=== PATIENT | female | born 1985 | race Caucasian/White ===

== ENCOUNTER → 2017-03-28 | Outpatient (CLI) | payer BC ==
[~2017-03-28] MED LIST: BENADRYL25 MG PO; CLARITIN10 MG PO; COMBIVENT1 ARO IH; DURICEF500 MG PO; Fioricet 325 MG1 TAB PO; HYDROCODONE BIT1 T11 PO; KENALOG0.1% TP; MEDROL DOSEPAK4 MG PO; MOTRIN800 MG PO; NKHM; PREDNICOT20 MG PO; VISTARIL25 M1 PO; ZITHROMAX Z PA250 MG PO; ZOFRAN ODT4 MG SL
== END | disposition home or self-care (01) ==
LOC: US 03-23 11:00 → MAMMO 03-23 12:00 → US 03-23 12:30 → MAMMO 10:28
DX: N63 Unspecified lump in breast (principal); R92.8 Other abnormal and inconclusive findings on diagnostic imaging of breast; R09.89 Other specified symptoms and signs involving the circulatory and respiratory systems

== ENCOUNTER → 2017-08-08 | Outpatient (CLI) | payer BC | END | disposition home or self-care (01) | LOC: RAD 08:28 | DX: M25.562 Pain in left knee (principal) ==

== ENCOUNTER 2017-10-25 18:54 | Emergency (ER) | payer BC ==
[~2017-10-25] VITALS: Ht 170.1 cm; Wt 97.5 kg
[2017-10-25] MEDS ORDERED: NEURONTIN300 MG PO (19:05)
[2017-10-25] MEDS ORDERED: TROKENDI XR50 M1 PO (19:06)
[2017-10-25] MEDS ORDERED: IBU800 M1 PO (19:06)
[2017-10-25] MEDS ORDERED: TYLENOL EXTRA500 M2 PO (19:07)
[2017-10-25 19:12] VITALS: BP 160/87
[2017-10-25 19:52] LABS: BASO % 0.3 % (0.0-1.0); EOS # 0.1 10*3/uL (0.0-0.4); HEMATOCRIT 37.5 % (37.0-47.0); LYMPH # 1.8 10*3/uL (1.3-4.4); LYMPH % 26.8 % (27.0-41.0); MEAN CELL VOLUME 84.3 fl (81.0-99.0); MEAN PLATELET VOLUME 11.5 fl (9.6-12.3); MONO # 0.2 10*3/uL (0.1-1.0); MONO % 3.2 % (3.0-9.0); NEUT # 4.5 10*3/uL (2.3-7.9); NEUT % 67.5 % (47.0-73.0); PLATELET COUNT AUTOMATED 186 10*3/uL (130-400); RED BLOOD COUNT 4.45 10*6/uL (4.10-5.10); RED CELL DISTRI WIDTH 13.9 % (0-14.5); WHITE BLOOD COUNT 6.6 10*3/uL (4.8-10.8)
[2017-10-25 20:04] LABS: BILIRUBIN NEGATIVE (NEGATIVE); BLOOD 1+ (NEGATIVE); CLARITY SL CLOUDY (CLEAR); COLOR YELLOW (YELLOW); GLUCOSE NEGATIVE (NEGATIVE); KETONE TRACE (NEGATIVE); LEUKO ESTERASE NEGATIVE (NEGATIVE); NITRITE NEGATIVE (NEGATIVE); SPECIFIC GRAVITY 1.025 (1.005-1.030); UROBILINOGEN 0.2 E.U./dl (0.2-1.0)
[2017-10-25 20:07] LABS: ALBUMIN 3.8 gm/dl (3.1-4.5); ALKALINE PHOSPHATASE 74 U/L (45-117); BUN 19 mg/dl (7-24); CHLORIDE 109 mmol/L (98-107); CREATININE 0.72 mg/dL (0.55-1.02); LIPASE 148 U/L (73-393); POTASSIUM 3.6 mmol/L (3.5-5.1); SGOT/AST 9 IU/L (3-35); SGPT/ALT 23 U/L (12-78); SODIUM 143 mmol/L (136-145); TOTAL PROTEIN 7.8 gm/dL (6.4-8.2)
[2017-10-25 20:14] LABS: BACTERIA TRACE
== END 2017-10-25 21:27 | disposition home or self-care (01) ==
LOC: ED 18:54
PROVIDERS: Physician Assistant
DX: R10.12 Left upper quadrant pain (principal); G89.29 Other chronic pain; Z98.890 Other specified postprocedural states; Z79.899 Other long term (current) drug therapy

== ENCOUNTER → 2018-09-25 | Outpatient (CLI) | payer BC ==
[~2018-09-25] MED LIST changes: +IBU800 M1 PO; +NEURONTIN300 MG PO; +TROKENDI XR50 M1 PO; +TYLENOL EXTRA500 M2 PO
[2018-09-25 10:57] LABS: HEMATOCRIT 38.6 % (37.0-47.0); HEMOGLOBIN 12.5 g/dl (12.0-16.0); MEAN CELL VOLUME 84.3 fl (81.0-99.0); MEAN CORPUSCULAR HGB 27.3 pg (27.0-31.0); MEAN CORPUSCULAR HGB CONC 32.4 g/dl (33.0-37.0); MEAN PLATELET VOLUME 11.4 fl (9.6-12.3); RED BLOOD COUNT 4.58 10*6/uL (4.10-5.10); RED CELL DISTRI WIDTH 13.3 % (0-14.5); WHITE BLOOD COUNT 7.5 10*3/uL (4.8-10.8)
[2018-09-25 11:31] LABS: ALKALINE PHOSPHATASE 70 U/L (45-117); BUN 12 mg/dl (7-24); CHLORIDE 104 mmol/L (98-107); CPK 54 U/L (26-192); CREATININE 0.73 mg/dL (0.55-1.02); FREE T4 0.98 ng/dl (0.76-1.46); POTASSIUM 3.7 mmol/L (3.5-5.1); SGOT/AST 13 IU/L (3-35); SGPT/ALT 24 U/L (12-78); SODIUM 137 mmol/L (136-145); TOTAL PROTEIN 7.8 gm/dL (6.4-8.2)
[2018-09-26 08:09] LABS: RHEUMATOID ARTHRITIS FACTOR 11.3 IU/mL (0.0-13.9)
[2018-09-26 15:08] LABS: EPSTEIN-BARR VCA IGG AB 56.6 U/mL (0.0-17.9); EPSTEIN-BARR VCA IGM AB <36.0 U/mL (0.0-35.9)
== END | disposition home or self-care (01) ==
LOC: LAB 10:28
PROVIDERS: Family Medicine
DX: K21.9 Gastro-esophageal reflux disease without esophagitis (principal); E55.9 Vitamin D deficiency, unspecified; F41.1 Generalized anxiety disorder; M25.50 Pain in unspecified joint; M79.10 Myalgia, unspecified site; E74.00 Glycogen storage disease, unspecified

== ENCOUNTER → 2020-07-13 | Outpatient (CLI) | payer BC ==
[2020-07-13 10:09] LABS: HEMATOCRIT 38.8 % (37.0-47.0); MEAN CELL VOLUME 84.3 fl (81.0-99.0); MEAN PLATELET VOLUME 11.6 fl (9.6-12.3); RED BLOOD COUNT 4.6 10*6/uL (4.10-5.10); RED CELL DISTRI WIDTH 13.8 % (0-14.5); WHITE BLOOD COUNT 6.9 10*3/uL (4.8-10.8)
[2020-07-13 10:33] LABS: ALBUMIN 3.8 gm/dl (3.1-4.5); BUN 11 mg/dl (7-24); CHLORIDE 108 mmol/L (98-107); POTASSIUM 3.6 mmol/L (3.5-5.1); SODIUM 139 mmol/L (136-145)
[2020-07-13 10:40] LABS: ALKALINE PHOSPHATASE 81 U/L (45-117); CHOLESTEROL 181 mg/dL (<200); CREATININE 0.66 mg/dL (0.55-1.02); FREE T4 1.09 ng/dl (0.76-1.46); HDL CHOLESTEROL 51 mg/dl (40-60); LDL CHOLESTEROL 105 mg/dL (9-159); SGOT/AST 10 IU/L (3-35); SGPT/ALT 23 U/L (12-78); THYROID STIM HORMONE (HS) 0.915 uIU/ml (0.358-4.75); TOTAL PROTEIN 7.6 gm/dL (6.4-8.2); TRIGLYCERIDES 124 mg/dl (<150); VLDL CHOLESTEROL 25 mg/dL (6-40)
[2020-07-13 11:26] LABS: VITAMIN D, 25-HYDROXY 37.7 ng/mL (30-100)
== END | disposition home or self-care (01) ==
LOC: LAB 09:21
PROVIDERS: ATTEND Family Medicine
DX: E55.9 Vitamin D deficiency, unspecified (principal); R53.83 Other fatigue; R63.5 Abnormal weight gain; E74.9 Disorder of carbohydrate metabolism, unspecified; E78.00 Pure hypercholesterolemia, unspecified

== ENCOUNTER 2021-07-14 19:14 | Emergency (ER) | payer BC ==
[~2021-07-14] VITALS: Ht 170.1 cm; Wt 99.8 kg
[2021-07-14 19:27] VITALS: BP 159/89
== END 2021-07-14 22:27 | disposition home or self-care (01) ==
LOC: ED 19:14
DX: S93.402A Sprain of unspecified ligament of left ankle, initial encounter (principal); S90.32XA Contusion of left foot, initial encounter; Z79.899 Other long term (current) drug therapy; W01.0XXA Fall on same level from slipping, tripping and stumbling without subsequent striking against object, initial encounter; Y93.89 Activity, other specified; Y92.89 Other specified places as the place of occurrence of the external cause; Y99.8 Other external cause status

== ENCOUNTER → 2022-02-05 | Outpatient (CLI) | payer BC ==
[2022-02-05 10:57] LABS: HEMATOCRIT 39.6 % (37.0-47.0); MEAN CELL VOLUME 81.1 fl (81.0-99.0); MEAN CORPUSCULAR HGB 25.8 pg (27.0-31.0); MEAN CORPUSCULAR HGB CONC 31.8 g/dl (33.0-37.0); MEAN PLATELET VOLUME 11.3 fl (9.6-12.3); RED BLOOD COUNT 4.88 10*6/uL (4.10-5.10); RED CELL DISTRI WIDTH 14.4 % (0-14.5)
[2022-02-05 11:16] LABS: ALKALINE PHOSPHATASE 78 U/L (45-117); BUN 9 mg/dl (7-24); CHLORIDE 107 mmol/L (98-107); CHOLESTEROL 185 mg/dL (<200); CREATININE 0.62 mg/dL (0.55-1.02); FREE T4 0.98 ng/dl (0.76-1.46); LDL CHOLESTEROL 99 mg/dL (9-159); POTASSIUM 3.4 mmol/L (3.5-5.1); SGOT/AST 16 IU/L (3-35); SGPT/ALT 32 U/L (12-78); SODIUM 141 mmol/L (136-145); TRIGLYCERIDES 121 mg/dl (<150)
[2022-02-05 11:20] LABS: THYROID STIM HORMONE (HS) 0.889 uIU/ml (0.358-4.75)
[2022-02-05 12:26] LABS: VITAMIN D, 25-HYDROXY 13.4 ng/mL (30-100)
== END | disposition home or self-care (01) ==
LOC: LAB 10:26
PROVIDERS: ATTEND Family Medicine
DX: Z00.00 Encounter for general adult medical examination without abnormal findings (principal); E55.9 Vitamin D deficiency, unspecified; R53.83 Other fatigue; F41.1 Generalized anxiety disorder; E74.00 Glycogen storage disease, unspecified

== ENCOUNTER → 2023-02-15 | Outpatient (CLI) | payer BC ==
[2023-02-15 07:59] LABS: HEMATOCRIT 37.4 % (37.0-47.0); MEAN CELL VOLUME 85.6 fl (81.0-99.0); MEAN CORPUSCULAR HGB 27.2 pg (27.0-31.0); MEAN CORPUSCULAR HGB CONC 31.8 g/dl (33.0-37.0); MEAN PLATELET VOLUME 11.1 fl (9.6-12.3); RED BLOOD COUNT 4.37 10*6/uL (4.10-5.10); RED CELL DISTRI WIDTH 14.7 % (0-14.5); WHITE BLOOD COUNT 6.7 10*3/uL (4.8-10.8)
[2023-02-15 08:34] LABS: ALKALINE PHOSPHATASE 75 U/L (46-116); BUN 11 mg/dl (9-23); CHLORIDE 103 mmol/L (98-107); CHOLESTEROL 187 mg/dL (<200); FREE T4 1.06 ng/dl (0.89-1.76); LDL CHOLESTEROL 106 mg/dL (9-159); POTASSIUM 3.4 mmol/L (3.4-5.1); SGPT/ALT 53 U/L (10-49); THYROID STIM HORMONE (HS) 1.054 uIU/ml (0.550-4.780); TOTAL PROTEIN 7.2 gm/dL (6.0-8.0); TRIGLYCERIDES 135 mg/dl (<150)
[2023-02-15 08:52] LABS: VITAMIN D, 25-HYDROXY 32.9 ng/mL (30-100)
[2023-02-17 05:06] LABS: TESTOSTERONE FREE, (DIRECT) 0.8 pg/mL (0.0-4.2)
== END | disposition home or self-care (01) ==
LOC: LAB 07:26
PROVIDERS: ATTEND Family Medicine
DX: Z00.00 Encounter for general adult medical examination without abnormal findings (principal); E74.9 Disorder of carbohydrate metabolism, unspecified; E55.9 Vitamin D deficiency, unspecified; R53.83 Other fatigue; R25.1 Tremor, unspecified; L68.0 Hirsutism; R63.5 Abnormal weight gain

== ENCOUNTER → 2023-08-11 | Outpatient (CLI) | payer BC ==
[2023-08-11 09:31] LABS: HEMATOCRIT 37.3 % (37.0-47.0); MEAN CELL VOLUME 80.9 fl (81.0-99.0); MEAN CORPUSCULAR HGB 26.2 pg (27.0-31.0); MEAN CORPUSCULAR HGB CONC 32.4 g/dl (33.0-37.0); MEAN PLATELET VOLUME 11.1 fl (9.6-12.3); RED BLOOD COUNT 4.61 10*6/uL (4.10-5.10); RED CELL DISTRI WIDTH 14.6 % (0-14.5); WHITE BLOOD COUNT 7.8 10*3/uL (4.8-10.8)
[2023-08-11 10:00] LABS: ALKALINE PHOSPHATASE 67 U/L (46-116); BUN 9 mg/dl (9-23); CHLORIDE 104 mmol/L (98-107); CHOLESTEROL 175 mg/dL (<200); CPK 68 U/L (34-171); FREE T4 1.14 ng/dl (0.89-1.76); LDL CHOLESTEROL 96 mg/dL (9-159); POTASSIUM 3.1 mmol/L (3.4-5.1); SGPT/ALT 56 U/L (10-49); TOTAL PROTEIN 7.4 gm/dL (6.0-8.0); TRIGLYCERIDES 122 mg/dl (<150)
[2023-08-11 11:33] LABS: VITAMIN D, 25-HYDROXY 22.7 ng/mL (30-100)
== END | disposition home or self-care (01) ==
LOC: LAB 09:10
PROVIDERS: ATTEND Family Medicine
DX: E78.00 Pure hypercholesterolemia, unspecified (principal); E55.9 Vitamin D deficiency, unspecified; M79.10 Myalgia, unspecified site; R51.9 Headache, unspecified; R53.83 Other fatigue; I10 Essential (primary) hypertension; M25.50 Pain in unspecified joint

== ENCOUNTER → 2023-08-15 | Outpatient (CLI) | payer BC | END | disposition home or self-care (01) | LOC: LAB 16:15 | PROVIDERS: ATTEND Family Medicine | DX: R76.0 Raised antibody titer (principal) ==

== ENCOUNTER 2024-07-06 13:24 | Emergency (ER) | payer BC ==
[~2024-07-06] VITALS: Ht 170.1 cm; Wt 115.7 kg
[2024-07-06 13:36] VITALS: BP 151/86
[2024-07-06] MEDS ORDERED: Lidocaine Hydrochloride 2 ML AMP SC ONE (13:55)
[2024-07-06] MEDS ORDERED: Lidocaine Hydrochloride 2% 50 ML MDV SC ONE (13:55)
[2024-07-06] MEDS ORDERED: Lidocaine Hydrochloride 5 ML AMP ONE (14:09)
[2024-07-06] MEDS ORDERED: Bacitracin Zinc 14 GM TUBE T ONE (14:20)
[2024-07-06] MEDS ORDERED: Tdap Vaccine 0.5 ML SYR (Adult Vaccine) IM ONE (14:20)
== END 2024-07-06 14:34 | disposition home or self-care (01) ==
LOC: ED 13:24
DX: S61.210A Laceration without foreign body of right index finger without damage to nail, initial encounter (principal); Z98.890 Other specified postprocedural states; W25.XXXA Contact with sharp glass, initial encounter; Y93.89 Activity, other specified; Y92.009 Unspecified place in unspecified non-institutional (private) residence as the place of occurrence of the external cause; Y99.8 Other external cause status

== ENCOUNTER 2024-10-23 20:03 | Emergency (ER) | payer BC ==
[~2024-10-23] VITALS: Wt 99.8 kg
[2024-10-23 20:19] VITALS: BP 144/73
[2024-10-23] MEDS ORDERED: IBUPROFEN 600 MG TAB PO ONE (20:45)
[2024-10-23] MEDS ORDERED: ACETAMINOPHEN 325 MG TAB PO ONE (20:45)
[2024-10-23 20:55] LABS: BASO % 0.2 % (0.0-1.0); EOS % 0.2 % (1.0-4.0); HEMATOCRIT 38.6 % (37.0-47.0); MEAN CELL VOLUME 81.1 fl (81.0-99.0); MEAN CORPUSCULAR HGB 25.2 pg (27.0-31.0); MEAN CORPUSCULAR HGB CONC 31.1 g/dl (33.0-37.0); MEAN PLATELET VOLUME 10.8 fl (9.6-12.3); MONO # 0.3 10*3/uL (0.1-1.0); MONO % 2.9 % (3.0-9.0); NEUT # 8.1 10*3/uL (2.3-7.9); NEUT % 87.8 % (47.0-73.0); PLATELET COUNT AUTOMATED 221 10*3/uL (130-400); RED BLOOD COUNT 4.76 10*6/uL (4.10-5.10); RED CELL DISTRI WIDTH 16.8 % (0-14.5); WHITE BLOOD COUNT 9.3 10*3/uL (4.8-10.8)
[2024-10-23 21:12] LABS: BUN 9 mg/dl (9-23); CHLORIDE 102 mmol/L (98-107); POTASSIUM 3.7 mmol/L (3.4-5.1)
[2024-10-23] MEDS ORDERED: ZITHROMAX250 MG PO (22:08)
[2024-10-23] MEDS ORDERED: PREDNISONE50 MG PO (22:08)
[2024-10-23] MEDS ORDERED: AZITHROMYCIN 250 MG TAB PO ONE (22:10)
[2024-10-23] MEDS ORDERED: predniSONE 20 MG TAB PO ONE (22:10)
== END 2024-10-23 22:30 | disposition home or self-care (01) ==
LOC: ED 20:03
PROVIDERS: Nurse Practitioner Family
DX: J18.9 Pneumonia, unspecified organism (principal); Z20.822 Contact with and (suspected) exposure to COVID-19; J45.909 Unspecified asthma, uncomplicated; I10 Essential (primary) hypertension; Z98.890 Other specified postprocedural states

== ENCOUNTER → 2024-11-11 | Outpatient (CLI) | payer BC ==
[~2024-11-11] MED LIST changes: +BARIUM SULFATE 60% 355 ML BOT PO ONE; +PREDNISONE50 MG PO; +ZITHROMAX250 MG PO
== END | disposition home or self-care (01) ==
LOC: RAD 07:31
PROVIDERS: ATTEND Surgery
DX: Z01.818 Encounter for other preprocedural examination (principal)

== ENCOUNTER → 2025-01-10 | Outpatient (CLI) | payer BC ==
[~2025-01-10] MED LIST changes: -BARIUM SULFATE 60% 355 ML BOT PO ONE
[2025-01-10 10:27] LABS: HEMATOCRIT 38.3 % (37.0-47.0); MEAN CELL VOLUME 84.4 fl (81.0-99.0); MEAN CORPUSCULAR HGB 26.4 pg (27.0-31.0); MEAN CORPUSCULAR HGB CONC 31.3 g/dl (33.0-37.0); MEAN PLATELET VOLUME 11.4 fl (9.6-12.3); RED BLOOD COUNT 4.54 10*6/uL (4.10-5.10); WHITE BLOOD COUNT 6.3 10*3/uL (4.8-10.8)
[2025-01-10 11:05] LABS: ALKALINE PHOSPHATASE 75 U/L (46-116); BUN 13 mg/dl (9-23); CHLORIDE 105 mmol/L (98-107); CHOLESTEROL 197 mg/dL (<200); CPK 68 U/L (34-171); FREE T4 1.22 ng/dl (0.89-1.76); LDL CHOLESTEROL 120 mg/dL (9-159); POTASSIUM 3.8 mmol/L (3.4-5.1); SGPT/ALT 55 U/L (5-49); TOTAL PROTEIN 7.2 gm/dL (6.0-8.0); TRIGLYCERIDES 140 mg/dl (<150)
[2025-01-10 11:15] LABS: VITAMIN D, 25-HYDROXY 36.1 ng/mL (30-100)
== END | disposition home or self-care (01) ==
LOC: LAB 10:09
PROVIDERS: ATTEND Family Medicine
DX: I10 Essential (primary) hypertension (principal); E74.9 Disorder of carbohydrate metabolism, unspecified; E55.9 Vitamin D deficiency, unspecified; E78.00 Pure hypercholesterolemia, unspecified; R53.82 Chronic fatigue, unspecified; E74.89 Other specified disorders of carbohydrate metabolism; F41.1 Generalized anxiety disorder

== ENCOUNTER → 2025-02-14 | Outpatient (CLI) | payer BC ==
[2025-02-14 11:00] LABS: BASO % 0.3 % (0.0-1.0); EOS # 0.1 10*3/uL (0.0-0.4); EOS % 1.8 % (1.0-4.0); HEMATOCRIT 38.9 % (37.0-47.0); MEAN CELL VOLUME 84.7 fl (81.0-99.0); MEAN CORPUSCULAR HGB 25.9 pg (27.0-31.0); MEAN CORPUSCULAR HGB CONC 30.6 g/dl (33.0-37.0); MONO # 0.3 10*3/uL (0.1-1.0); MONO % 3.4 % (3.0-9.0); NEUT # 5.4 10*3/uL (2.3-7.9); NEUT % 73.1 % (47.0-73.0); PLATELET COUNT AUTOMATED 247 10*3/uL (130-400); RED BLOOD COUNT 4.59 10*6/uL (4.10-5.10); RED CELL DISTRI WIDTH 14.6 % (0-14.5); WHITE BLOOD COUNT 7.3 10*3/uL (4.8-10.8)
[2025-02-14 11:48] LABS: ALKALINE PHOSPHATASE 81 U/L (46-116); BUN 14 mg/dl (9-23); CHLORIDE 102 mmol/L (98-107); POTASSIUM 3.3 mmol/L (3.4-5.1); SGPT/ALT 58 U/L (5-49); TOTAL PROTEIN 7.3 gm/dL (6.0-8.0)
== END | disposition home or self-care (01) ==
LOC: LAB 08:32
PROVIDERS: ATTEND Surgery
DX: Z01.818 Encounter for other preprocedural examination (principal); J98.4 Other disorders of lung

== ENCOUNTER 2025-07-18 15:23 | Emergency (ER) | payer BC ==
[~2025-07-18] VITALS: Ht 170.1 cm; Wt 92.5 kg
[2025-07-18] MEDS ORDERED: BARIATRIC MULT1 EACH PO (15:32)
[2025-07-18] MEDS ORDERED: BIOTIN1 M1 PO (15:34)
[2025-07-18 15:37] VITALS: BP 138/78
[2025-07-18 15:56] LABS: BILIRUBIN Negative (Negative); BLOOD 3+ (Negative); CLARITY Cloudy (Clear); COLOR Orange (Yellow); KETONE 1+ (Negative); LEUKO ESTERASE 1+ (Negative); NITRITE Negative (Negative); PH 6.0 (4.5-8.0); SPECIFIC GRAVITY 1.025 (1.001-1.030); UROBILINOGEN 1.0 E.U./dl (0.0-1.0)
[2025-07-18 16:09] LABS: RBC TNTC rbc/hpf (0-2)
[2025-07-18] MEDS ORDERED: PYRIDIUM100 MG PO (16:19)
== END 2025-07-18 19:49 | disposition home or self-care (01) ==
LOC: ED 15:23
PROVIDERS: Nurse Practitioner Family
DX: N30.01 Acute cystitis with hematuria (principal); Z79.899 Other long term (current) drug therapy

== ENCOUNTER → 2025-09-21 | Outpatient (CLI) | payer BC ==
[~2025-09-21] MED LIST changes: +BARIATRIC MULT1 EACH PO; +BIOTIN1 M1 PO; +IOHEXOL 300 MG/ML 100 ML VIAL IV ONE; +IOHEXOL 300 MG/ML 100 ML VIAL ONE; +PYRIDIUM100 MG PO
== END | disposition home or self-care (01) ==
LOC: CT 15:49
PROVIDERS: ATTEND Family Medicine
DX: N83.201 Unspecified ovarian cyst, right side (principal); R10.20 Pelvic and perineal pain unspecified side

== ENCOUNTER → 2025-10-17 | Outpatient (CLI) | payer BC ==
[~2025-10-17] MED LIST changes: -IOHEXOL 300 MG/ML 100 ML VIAL IV ONE; -IOHEXOL 300 MG/ML 100 ML VIAL ONE
== END | disposition home or self-care (01) ==
LOC: US 10-10 10:00
PROVIDERS: ATTEND Family Medicine
DX: N32.81 Overactive bladder (principal); I10 Essential (primary) hypertension; N28.1 Cyst of kidney, acquired